=== PATIENT | female | born 1955 | race African-American/Black ===

== ENCOUNTER 2021-03-21 23:48 | Emergency (ER) | payer OTHER ==
[~2021-03-21] VITALS: Ht 175.3 cm; Wt 79.0 kg
[2021-03-22] MEDS ORDERED: NITROGLYCERIN OINT 1GM/INCH UDPKT TD NR (00:45)
[2021-03-22] MEDS ORDERED: ASPIRIN 325MG TABLET PO NR (01:00)
[2021-03-22 01:30] LABS: BASOPHILS % 0.7 % (0.0-2.0); EOSINOPHILS % 2.5 % (0.0-5.0); HEMATOCRIT. 33.5 % (36.0-48.0); HEMOGLOBIN. 11.2 g/dL (12.0-16.0); LYMPHOCYTES % 30.7 % (20.0-50.0); MEAN CORPUSCULAR HEMOGLOBIN 26.2 pg (28.0-32.0); MEAN CORPUSCULAR VOLUME 78.5 fL (81.0-99.0); MONOCYTES % 7.8 % (2.0-8.0); NEUTROPHILS % 58.3 % (40.0-76.0); PLATELET 193 x1000/uL (130-400); RED BLOOD CELL COUNT 4.27 mill/uL (4.2-5.4); RED CELL DISTRIBUTION WIDTH 16.7 % (11.6-14.6)
[2021-03-22 01:32] LABS: CHLORIDE 106 mEq/L (98-107)
[2021-03-22 03:42] LABS: D-DIMER 0.52 mg/L FEU (<0.50); INR 1.4; PROTHROMBIN TIME 14.4 sec (9.6-11.0)
[2021-03-22 04:01] VITALS: BP 125/70
== END 2021-03-22 04:20 | disposition home or self-care (01) ==
LOC: ER 23:48
DX: R07.89 Other chest pain (principal); I11.0 Hypertensive heart disease with heart failure; F03.90 Unspecified dementia, unspecified severity, without behavioral disturbance, psychotic disturbance, mood disturbance, and anxiety; I50.9 Heart failure, unspecified
CPT/HCPCS: 36415; 71045; 80053; 83880; 84484; 85025; 85379; 93005; 99291

== ENCOUNTER 2021-03-25 16:33 | Emergency (ER) | payer OTHER ==
[~2021-03-25] VITALS: Ht 167.6 cm; Wt 73.0 kg
[2021-03-25] MEDS ORDERED: ACETAMINOPHEN 325MG TABLET PO STA (16:45)
[2021-03-25 18:46] VITALS: BP 115/73
== END 2021-03-25 18:57 | disposition home or self-care (01) ==
LOC: ER 16:33
DX: S09.8XXA Other specified injuries of head, initial encounter (principal); W22.8XXA Striking against or struck by other objects, initial encounter; R94.31 Abnormal electrocardiogram [ECG] [EKG]; Y93.89 Activity, other specified; Y92.015 Private garage of single-family (private) house as the place of occurrence of the external cause; I11.0 Hypertensive heart disease with heart failure; Z79.01 Long term (current) use of anticoagulants; I50.9 Heart failure, unspecified; G30.9 Alzheimer's disease, unspecified; F02.80 Dementia in other diseases classified elsewhere, unspecified severity, without behavioral disturbance, psychotic disturbance, mood disturbance, and anxiety
CPT/HCPCS: 93005; 99284